=== PATIENT | male | born 1960 | race Caucasian/White ===

== ENCOUNTER → 2020-03-23 | Outpatient (CLI) | payer OTHER ==
[~2020-03-23] MED LIST: CENTRUM SILVER1 EAC2; FISH OIL 1,001000 M2 PO; PERCOCET 7.5-31 EACH PO
== END ==
LOC: M.MRI 16:22
PROVIDERS: ATTEND Internal Medicine
DX: M75.101 Unspecified rotator cuff tear or rupture of right shoulder, not specified as traumatic (principal); G47.33 Obstructive sleep apnea (adult) (pediatric); I10 Essential (primary) hypertension; Z00.00 Encounter for general adult medical examination without abnormal findings; M17.11 Unilateral primary osteoarthritis, right knee; M25.761 Osteophyte, right knee